=== PATIENT | male | born 1995 | race Caucasian/White ===

== ENCOUNTER 2022-02-24 15:58 | Emergency (ER) | payer MEDICAID ==
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
[2022-02-24 16:13] VITALS: BP 126/66; PULSE 84; O2SAT 98
[2022-02-24] MEDS ORDERED: NORCO 5/325 MG PO ONE (18:16)
[2022-02-24] MEDS ORDERED: NORCO 5/325 MG ONE (18:27)
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
== END 2022-02-24 18:38 | disposition home or self-care (01) ==
LOC: ED 15:58
DX: G89.18 Other acute postprocedural pain (principal); M25.512 Pain in left shoulder; Z48.00 Encounter for change or removal of nonsurgical wound dressing
CPT/HCPCS: 73030; 99282; 99283; A9270-GY